=== PATIENT | female | born 1955 | race Caucasian/White ===

== ENCOUNTER 2018-07-14 09:03 | Outpatient (CLI) | payer BC ==
--- NOTE | 2018-07-15 08:52 | Mammography Report ---
Reason: SCREENING MAMMO Procedure Date: 07/14/2018 Accession Number: [id number] / [id number] Procedure: ANGELO - Screening Mammo w/Сергей CPT Code: FULL RESULT: EXAM: Screening Mammo w/Сергей DATE: 07/14/2018 9:52 AM CLINICAL HISTORY: Screening encounter. History of nulliparity. Family history of breast cancer in a sister above the age of 45 and a grandmother at the age of 70. TECHNIQUE: Bilateral CC and MLO views were obtained. COMPARISON: 01/03/2016 through 06/11/2011. FINDINGS: The breasts demonstrate scattered fibroglandular densities bilaterally. Typically benign bilateral intramammary lymph nodes are stable. No suspicious masses, clustered microcalcifications, or regions of architectural distortion are identified. IMPRESSION: Benign findings RECOMMENDATION: Routine annual screening unless otherwise clinically indicated. BIRADS CATEGORY 2: Benign findings STANDARD QUALIFYING STATEMENTS: 1. This examination was not reviewed with the aid of Computer-Aided Detection (CAD). 2. A negative or benign imaging report should not preclude biopsy if clinically suspicious findings are present. 3. Dense breasts may obscure an underlying neoplasm. 4. This examination was reviewed with the aid of 3D breast imaging (tomosynthesis).
== END 2018-07-14 09:04 | disposition home or self-care (01) ==
LOC: DI 09:03
DX: Z12.31 Encounter for screening mammogram for malignant neoplasm of breast (principal); Z80.3 Family history of malignant neoplasm of breast
CPT/HCPCS: 77063; 77067

== ENCOUNTER 2018-09-14 12:43 | Outpatient (CLI) | payer BC ==
--- NOTE | 2018-09-14 15:25 | MRI Report ---
Reason: LT KNEE PAIN Procedure Date: 09/14/2018 Accession Number: [id number] / [id number] Procedure: MRI - Knee LT W/O CPT Code: FULL RESULT: EXAM: LEFT KNEE MRI WITHOUT CONTRAST. EXAM DATE: 09/14/2018 02:07 PM. CLINICAL HISTORY: Left knee pain. COMPARISON: None. TECHNIQUE: Multiplanar, multisequence T1-weighted and fluid-sensitive sequences of the knee without contrast. Other: None. 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 No patellar subluxation. Small enthesophytes at the anterior aspect of the patella. No acute fracture or bone lesions. Medial Meniscus: Free edge fraying and a possible horizontal tear at the anterior horn (coronal images 14 through 16). Lateral Meniscus: The lateral meniscus is intact. Cruciate Ligaments: The anterior and posterior cruciate ligaments are intact. Collateral Ligaments: The medial collateral and lateral collateral ligamentous structures are intact. Tendons: The quadriceps, patellar, semimembranosus, and popliteus tendons are unremarkable. Musculature: No edema or fatty atrophy. Other: No effusion. No popliteal cyst. No loose bodies. The medial and lateral retinacula are intact. The subcutaneous tissues and fat pads are unremarkable. IMPRESSION: 1. Free edge fraying and a possible small horizontal tear at the anterior horn medial meniscus. 2. 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 3. Small patellar enthesophytes. RADIA MUSCULOSKELETAL RADIOLOGY SECTION
== END 2018-09-14 12:44 | disposition home or self-care (01) ==
LOC: DI 12:43
PROVIDERS: ATTEND Internal Medicine
DX: M94.262 Chondromalacia, left knee (principal); M76.9 Unspecified enthesopathy, lower limb, excluding foot

== ENCOUNTER 2020-08-30 11:13 | Outpatient (CLI) | payer MEDICARE, BC ==
--- NOTE | 2020-08-31 13:00 | Mammography Report ---
BILATERAL DIGITAL SCREENING MAMMOGRAM 3D/2D: 08/30/2020 CLINICAL: Family history of breast cancer. Routine screening. Comparison is made to exams dated: 07/14/2018 mammogram, 01/03/2016 mammogram, 11/23/2014 mammogram - [facility], 06/08/2012 mammogram, 06/11/2011 mammogram, and 05/17/2010 mammogram - [facility]. The tissue of both breasts is predominantly fatty. No significant masses, calcifications, or other findings are seen in either breast. There has been no significant interval change. IMPRESSION: NEGATIVE There is no mammographic evidence of malignancy. A 1 year screening mammogram is recommended. This exam was interpreted at Station ID: [id number]. NOTE: For mammograms, a report in lay terms will be sent to the patient. Approximately 15% of breast malignancies will not be visualized mammographically. In the management of a palpable breast mass, a negative mammogram must not discourage biopsy of a clinically suspicious lesion. Electronically Signed By: Jacobo Ortiz acr/penrad:08/30/2020 14:13:23 ACR BI-RADS Category 1: Negative 3341F PARENCHYMAL PATTERN: (F) - The breast(s) demonstrate(s) diffuse fatty replacement. BI-RADS CATEGORY: (1) - 1 RECOMMENDATION: (ANNUAL) - Recommend routine annual screening mammography. [id number] 1 year screening LATERALITY: (B)
== END 2020-08-30 11:14 | disposition home or self-care (01) ==
LOC: DI.N 11:13
DX: Z12.31 Encounter for screening mammogram for malignant neoplasm of breast (principal); Z80.3 Family history of malignant neoplasm of breast

== ENCOUNTER 2021-02-25 12:30 | Outpatient (CLI) | payer MEDICARE, BC ==
--- NOTE | 2021-02-25 13:57 | DEXA Report ---
PROCEDURE: Dexa Spine and/or Hip INDICATIONS: POST MENOPAUSAL, OSTEOPOROSIS SCREENING TECHNIQUE: Dual energy x-ray absorptiometry (DXA) was performed on a [employer]Safe System. Regions measur ed are the AP Spine, femoral neck, and if needed forearm. COMPARISON: None. FINDINGS: Lumbar Spine: Bone Mineral Density 1.245 g/cm/cm,T score 0.5, normal Left Hip: Bone Mineral Density 0.991 g/cm/cm,T score -0.1, normal Left Femoral Neck: Bone Mineral Density 0.848 g/cm/cm, T score -1.4, osteopenia (T score greater or equal to -1.0: NORMAL) (T score from -1.1 to -2.4: OSTEOPENIA) (T score less than or equal to -2.5 to: OSTEOPOROSIS) Impression: Osteopenia at the left femoral neck, but normal bone mineral density of the lumbosacral s pine overall and the left hip overall. Patients with diagnosis of osteoporosis or osteopenia should have regular bone mineral density assess ment. For those eligible for Medicare, routine testing is allowed once every 2 years. Testing frequ ency can be increased for patients who have rapidly progressing disease or for those who are receivin g medical therapy to restore bone mass. Reviewed by: Luis Braun MD on 02/25/2021 1:55 PM PDT Approved by: Luis Braun MD on 02/25/2021 1:55 PM PDT Station ID: [id number]
== END 2021-02-25 12:31 | disposition home or self-care (01) ==
LOC: DI 12:30
PROVIDERS: ATTEND Internal Medicine
DX: Z13.820 Encounter for screening for osteoporosis (principal); M85.88 Other specified disorders of bone density and structure, other site; Z78.0 Asymptomatic menopausal state

== ENCOUNTER 2021-03-27 07:10 | Day surgery (SDC) | payer MEDICARE, BC ==
[2021-03-27] MEDS ORDERED: MIDAZOLAM 2 MG/2 ML VIAL ONE (07:38)
[2021-03-27] MEDS ORDERED: PROPOFOL 200 MG/20 ML VIAL IVP ONE (07:38)
[2021-03-27] MEDS ORDERED: fentaNYL 100 MCG/2 ML VIAL ONE (07:38)
[2021-03-27] MEDS ORDERED: LACTATED RINGERS 1,000 ML IV ONE (07:40)
--- NOTE | 2021-03-27 07:52 | ANESTHESIA ---
Pre-Anesthesia VS, & Labs - Diagnosis screening exam - Procedure colonoscopy Vital Signs: Temp Pulse Resp BP Pulse Ox 36.5 C 73 16 164/70 H 98 03/27/21 07:15 03/27/21 07:15 03/27/21 07:15 03/27/21 07:15 03/27/21 07:15 Height: 53 ft Weight (kg): 86.4 kg Body Mass Index: 0.3 BMI Classification: Underweight - NPO >8 hours - Is Patient ?: No - Lab Results Current Lab Results: Laboratory Tests 03/27/21 07:37: POC Whole Bld Glucose 134 H Home Medications and Allergies Home Medications: Ambulatory Orders Apixaban [Eliquis] 5 mg PO DAILY 03/26/21 Atenolol [Tenormin] 100 mg PO DAILY 03/26/21 Atorvastatin [Lipitor] 10 mg PO DAILY 03/26/21 Famotidine [Zantac-360 (Famotidine)] 40 mg PO DAILY 03/26/21 Lactobacillus Combination No.4 [Probiotic] 1 ea PO DAILY 03/26/21 Lansoprazole [Prevacid] 30 mg PO DAILY 03/26/21 Losartan/Hydrochlorothiazide [Hyzaar 50-12.5 Tablet] 1 each PO DAILY 03/26/21 diltiaZEM [Cardizem] 30 mg PO ONCE PRN 03/26/21 metFORMIN [Glucophage] 500 mg PO DAILY 03/26/21 metroNIDAZOLE 0.75% GEL [Flagyl Gel] 1 applic TOP DAILY PRN 03/26/21 Apixaban [Eliquis] 5 mg PO DAILY 03/26/21 Atenolol [Tenormin] 100 mg PO DAILY 03/26/21 Atorvastatin [Lipitor] 10 mg PO DAILY 03/26/21 Famotidine [Zantac-360 (Famotidine)] 40 mg PO DAILY 03/26/21 Lactobacillus Combination No.4 [Probiotic] 1 ea PO DAILY 03/26/21 Lansoprazole [Prevacid] 30 mg PO DAILY 03/26/21 Losartan/Hydrochlorothiazide [Hyzaar 50-12.5 Tablet] 1 each PO DAILY 03/26/21 diltiaZEM [Cardizem] 30 mg PO ONCE PRN 03/26/21 metFORMIN [Glucophage] 500 mg PO DAILY 03/26/21 metroNIDAZOLE 0.75% GEL [Flagyl Gel] 1 applic TOP DAILY PRN 03/26/21 Allergies/Adverse Reactions: Allergies Allergy/AdvReac Type Severity Reaction Status Date / Time codeine AdvReac Unknown Verified 03/26/21 12:29 Anes History & Medical History - Anesthetic History Anesthesia Complications: reports: Post-Operative Nausea/Vomiting - Medical History Cardiovascular: reports: Hypertension, High cholesterol, Arrhythmia Pulmonary: reports: None Gastrointestinal: reports: GERD Urinary: reports: None Neuro: reports: None Musculoskeletal: reports: Other Endocrine/Autoimmune: reports: Type 2 diabetes Skin: reports: None Smoking Status: Never smoker Psychosocial: reports: No issues indicated History of Cancer?: No - Surgical History General: reports: Colonoscopy Gynecologic: reports: Hysterectomy, Oophrectomy Exam General: Alert, Oriented x3, Cooperative, No acute distress Dental: WNL Mouth Openin Fingerbreadth Neck Mobility: Normal Mallampati classification: II Thyromental Distance: 4-6 cm Plan Anesthesia Type: Total IV Consent for Procedure(s) Verified and Reviewed: Yes Code Status: Attempt Resuscitation ASA classification: 2-Mild systemic disease Is this case an emergency?: No
[2021-03-27] MEDS ORDERED: LACTATED RINGERS 500 ML IV ONE (08:30)
--- NOTE | 2021-03-27 08:41 | ANESTHESIA POST OP EVALUATION ---
Anesthesia Post Eval - Post Anesthesia Eval Vitals: Last Vital Signs Temp 36.5 C 03/27/21 08:30 Pulse 64 03/27/21 08:37 Resp 16 03/27/21 08:37 BP 124/86 H 03/27/21 08:37 Pulse Ox 93 03/27/21 08:37 CV Function Including HR & BP: Stable Pain Control: Satisfactory Nausea & Vomiting: Negative Mental Status: Baseline Respiratory Status: Airway Patent Hydration Status: Satisfactory Anesthesia Complications: None
[2021-03-27 08:56] VITALS: BP 132/62
== END 2021-03-27 07:11 | disposition home or self-care (01) ==
LOC: SDS 07:10
PROVIDERS: ATTEND Surgery
PROC: 0DBN8ZZ Excision of Sigmoid Colon, Via Natural or Artificial Opening Endoscopic (ICD-10-PCS; principal; 2021-03-27 08:15)
DX: Z12.11 Encounter for screening for malignant neoplasm of colon (principal); D12.5 Benign neoplasm of sigmoid colon; I12.9 Hypertensive chronic kidney disease with stage 1 through stage 4 chronic kidney disease, or unspecified chronic kidney disease; E11.22 Type 2 diabetes mellitus with diabetic chronic kidney disease; N18.9 Chronic kidney disease, unspecified; I48.92 Unspecified atrial flutter; E78.5 Hyperlipidemia, unspecified; I49.9 Cardiac arrhythmia, unspecified; K21.9 Gastro-esophageal reflux disease without esophagitis; K64.8 Other hemorrhoids; E66.9 Obesity, unspecified; Z68.34 Body mass index [BMI] 34.0-34.9, adult; Z79.01 Long term (current) use of anticoagulants; Z79.84 Long term (current) use of oral hypoglycemic drugs; Z79.899 Other long term (current) drug therapy
CPT/HCPCS: 45385; J7120

== ENCOUNTER 2021-06-25 08:00 | Outpatient (CLI) | payer MEDICARE, BC | END 2021-06-25 23:59 | LOC: LAB.N 08:00 | PROVIDERS: ATTEND Physician Assistant | DX: R05.3 Chronic cough (principal); Z20.822 Contact with and (suspected) exposure to COVID-19 ==

== ENCOUNTER 2021-07-01 08:00 | Outpatient (CLI) | payer MEDICARE, BC | END 2021-07-01 23:55 | LOC: LAB.N 08:00 | PROVIDERS: ATTEND Physician Assistant Medical | DX: R05.9 Cough, unspecified (principal); Z20.822 Contact with and (suspected) exposure to COVID-19 ==

== ENCOUNTER 2023-04-15 13:39 | Outpatient (CLI) | payer MEDICARE, BC ==
--- NOTE | 2023-04-16 09:59 | Mammography Report ---
BILATERAL DIGITAL SCREENING MAMMOGRAM 3D/2D: 04/15/2023 CLINICAL: High risk screening. Comparison is made to exams dated: 02/25/2022 mammogram - [facility], 03/05/2021 [facility], 08/30/2020 mammogram, 07/14/2018 mammogram, 01/03/2016 mammogram, and 11/23/2014 mammogram - [facility]. There are scattered areas of fibroglandular density in both breasts (category b / 25%-50% glandular t issue). There is a possible developing equal density asymmetry in the right breast anterior depth lateral reg ion seen on the craniocaudal view only. No other significant masses, calcifications, or other findings are seen in either breast. IMPRESSION: INCOMPLETE: NEEDS ADDITIONAL IMAGING EVALUATION The possible developing equal density asymmetry in the right breast is indeterminate. Additional vie ws with possible ultrasound are recommended. Based on Tyrer-Cuzick model (a risk assessment model), the patient's lifetime risk is 37.3% and her 1 0 year risk is 21.8%. If a patient has an elevated risk, a more comprehensive evaluation should be co nsidered and/or a referral to a genetic counselor. The [place] [employer], [place] [employer], and NCCN Guidelines advise the consideration of Breast MRI as an adjunct to screening mammo graphy in patients whose "Lifetime risk to develop breast cancer" is 20% or higher. This exam was interpreted at Station ID: [id number]. NOTE: For mammograms, a report in lay terms will be sent to the patient. Approximately 15% of breast malignancies will not be visualized mammographically. In the management of a palpable breast mass, a negative mammogram must not discourage biopsy of a clinically suspicious lesion. Electronically Signed By: Raul Tabor M.D. aty/:04/16/2023 07:01:33 ACR BI-RADS Category 0: Incomplete 3340F PARENCHYMAL PATTERN: (A) - The breast(s) demonstrate(s) scattered fibroglandular densities. BI-RADS CATEGORY: (0) - 0 Mammo and [place] [id number] Immediate follow-up LATERALITY: (R)
== END 2023-04-15 13:40 | disposition home or self-care (01) ==
LOC: DI 13:39
DX: Z12.31 Encounter for screening mammogram for malignant neoplasm of breast (principal); R92.8 Other abnormal and inconclusive findings on diagnostic imaging of breast; R92.323 Mammographic fibroglandular density, bilateral breasts

== ENCOUNTER 2023-05-13 10:46 | Outpatient (CLI) | payer MEDICARE, BC ==
--- NOTE | 2023-05-13 12:18 | Mammography Report ---
UNILATERAL RIGHT DIGITAL DIAGNOSTIC MAMMOGRAM 3D/2D WITH SPOT COMPRESSION: 05/13/2023 CLINICAL: Patient returns today to evaluate an asymmetry in the right breast. Comparison is made to exams dated: 04/15/2023 mammogram, 02/25/2022 mammogram, 08/30/2020 mammogram, mammogram, 01/03/2016 mammogram, and 11/23/2014 mammogram - [facility]. There are scattered areas of fibroglandular density in the right breast (category b / 25%-50% glandul ar tissue). There is a possible benign asymmetry in the right breast anterior depth lateral region seen on the cr aniocaudal view only. This is not seen in additional views. No other significant masses or calcifications are seen in the breast. IMPRESSION: BENIGN There is no mammographic evidence of malignancy. Possible asymmetry in the right breast is not confirmed. A 1 year screening mammogram is recommended. Exam findings were conveyed to the patient. Based on Tyrer-Cuzick model (a risk assessment model), the patient's lifetime risk is 35.6% and her 1 0 year risk is 21.6%. If a patient has an elevated risk, a more comprehensive evaluation should be co nsidered and/or a referral to a genetic counselor. The [place] [employer], [place] [employer], and NCCN Guidelines advise the consideration of Breast MRI as an adjunct to screening mammo graphy in patients whose "Lifetime risk to develop breast cancer" is 20% or higher. This exam was interpreted at Station ID: [id number]. NOTE: For mammograms, a report in lay terms will be sent to the patient. Approximately 15% of breast malignancies will not be visualized mammographically. In the management of a palpable breast mass, a negative mammogram must not discourage biopsy of a clinically suspicious lesion. Electronically Signed By: Surendra Brady M.D. slc/:05/13/2023 11:53:00 ACR BI-RADS Category 2: Benign Finding(s) 3342F PARENCHYMAL PATTERN: (A) - The breast(s) demonstrate(s) scattered fibroglandular densities. BI-RADS CATEGORY: (2) - 2 Mammogram [id number] 1 year screening LATERALITY: (B)
== END 2023-05-13 10:47 | disposition home or self-care (01) ==
LOC: DI 10:46
PROVIDERS: ATTEND Internal Medicine
DX: R92.2 Inconclusive mammogram (principal); R92.321 Mammographic fibroglandular density, right breast

== ENCOUNTER 2024-01-04 08:17 | Outpatient (CLI) | payer MEDICARE, BC ==
--- NOTE | 2024-01-04 14:18 | DEXA Report ---
PROCEDURE: Dexa Spine and/or Hip INDICATIONS: OSTEOPENIA TECHNIQUE: Dual energy x-ray absorptiometry (DXA) was performed on a [employer] System. Regions measur ed are the AP Spine, femoral neck, and if needed forearm. COMPARISON: 02/25/2021 FINDINGS: Lumbar Spine: Bone Mineral Density: 1.209 g/cm/cm,T score: 0.2. Normal, change from previous -2.9%, significant Left Femoral Neck: Bone Mineral Density: 0.881 g/cm/cm, T score: -1.1, osteopenia. Left Hip: Bone Mineral Density: 0.981 g/cm/cm,T score: -0.2, normal. Change from previous -1.0% (T score greater or equal to -1.0: NORMAL) (T score from -1.1 to -2.4: OSTEOPENIA) (T score less than or equal to -2.5 to: OSTEOPOROSIS) Impression: By WHO criteria, this patient has low bone density (osteopenia). Interval significant decrease in bone mineral density of the lumbar spine. No statistically significa nt change in bone mineral density of the hip. Patients with diagnosis of osteoporosis or osteopenia should have regular bone mineral density assess ment. For those eligible for Medicare, routine testing is allowed once every 2 years. Testing frequ ency can be increased for patients who have rapidly progressing disease or for those who are receivin g medical therapy to restore bone mass. Reviewed by: Linda Brahnam MD on 01/04/2024 2:17 PM PDT Approved by: Linda Branham MD on 01/04/2024 2:17 PM PDT Station ID: [id number]
== END 2024-01-04 08:18 | disposition home or self-care (01) ==
LOC: DI 08:17
PROVIDERS: ATTEND Registered Nurse
DX: M85.88 Other specified disorders of bone density and structure, other site (principal)